=== PATIENT | male | born 1995 | race Caucasian/White ===

== ENCOUNTER 2017-12-08 12:46 | Emergency (ER) | payer MEDICAID, OTHER ==
[2017-12-08] MEDS: LIDOCAINE 1% (MDV) 10 ML INJ INFIL (14:11)
[2017-12-08] MEDS: DIPHTH/TET/ACEL PERTUSS (ADULT) 0.5 ML VIAL IM* (14:45)
== END 2017-12-08 15:21 | disposition home or self-care (01) ==
LOC: FTE 12:46
DX: S51.812A Laceration without foreign body of left forearm, initial encounter (principal); W26.8XXA Contact with other sharp object(s), not elsewhere classified, initial encounter; Y92.9 Unspecified place or not applicable; Z23 Encounter for immunization
CPT/HCPCS: 12002; 90471; 90715; 99283-25